=== PATIENT | female | born 1950 | race Caucasian/White ===

== ENCOUNTER → 2024-01-11 13:44 | Outpatient (REF) | payer MEDICARE, OTHER, SELFPAY | LOC: WDC 13:44 | PROVIDERS: ATTENDING PHYSICIAN Obstetrics & Gynecology Gynecology; FAMILY PHYSICIAN Family Medicine | DX: Z12.31 Encounter for screening mammogram for malignant neoplasm of breast (principal) | CPT/HCPCS: 77063; 77067 ==

== ENCOUNTER → 2025-04-26 15:52 | Outpatient (REF) | payer MEDICARE, OTHER, SELFPAY | LOC: RCS 15:52 | PROVIDERS: ATTENDING PHYSICIAN Student in an Organized Health Care Education/Training Program; FAMILY PHYSICIAN Family Medicine | DX: I77.810 Thoracic aortic ectasia (principal) | CPT/HCPCS: 93306 ==